=== PATIENT | female | born 2000 | race Caucasian/White ===

== ENCOUNTER 2022-09-15 07:05 | Emergency (ER) | payer BC ==
[~2022-09-15] VITALS: Ht 162.6 cm; Wt 57.6 kg
[2022-09-15] MEDS ORDERED: CEPH500 PO (08:16)
== END 2022-09-15 08:22 | disposition home or self-care (01) ==
LOC: ER 07:05
DX: L03.115 Cellulitis of right lower limb (principal); Z88.0 Allergy status to penicillin
CPT/HCPCS: 99283

== ENCOUNTER → 2023-06-04 | Outpatient (CLI) | payer BC ==
[~2023-06-04] MED LIST: CEPH500 PO
== END | disposition home or self-care (01) ==
LOC: LAB SHORT 13:45 → LAB 13:45
PROVIDERS: Family Medicine
DX: Z12.4 Encounter for screening for malignant neoplasm of cervix (principal)
CPT/HCPCS: G0145